=== PATIENT | male | born 1965 | race Hispanic/Latino ===

== ENCOUNTER 2017-06-05 15:49 | Emergency (ER) | payer MEDICAID, SELFPAY ==
[2017-06-05 15:49] VITALS: BP 146/94; PULSE 67; RESP 18; TEMP 36.3; O2SAT 99; BMI 29.9
--- NOTE | 2017-06-05 16:01 | RAD_ITS ---
STUDY: X-RAY CHEST REASON FOR EXAM: Male, 51 years old. Coughing for one week TECHNIQUE: PA and lateral views of the chest. COMPARISON: None. FINDINGS: The lungs are clear and expanded. There is no demonstrated pleural abnormality. Normal size heart. Normal mediastinum and ford. Normal visualized pulmonary arteries. Normal visualized aortic arch and descending thoracic aorta. Normal visualized thoracic spine. Postop changes lateral left clavicle. There is no demonstrated abnormality of the visualized soft tissue structures of the upper abdomen. RAD/Chest PA and Lateral IMPRESSION: No acute cardiopulmonary findings. Negative for infiltrate, consolidation, atelectasis or pleural effusion. Electronically Signed: Peyton Romero MD at 17:05 EDT , Service support ,
--- NOTE | 2017-06-05 16:02 | ED.VISSUMM ---
- ER Visit Summary Date of Service: 06/05/17 Chief Complaint: Bronchitis History of Present Illness: The patient is a 51 M with a one-week history of cough and cold symptoms. Patient states he had cough and congestion for the past 1 week and was seen at [facility]. He was diagnosed with bronchitis. He was given albuterol and Zithromax which caused him to vomit. Antibiotics were stopped. Patient is complaining continued congestion. He states his sputum was initially green but is not clear. He does not feel as if he is wheezing. He has not had a fever. He does state that his roommate has pneumonia and is currently on antibiotics. Physical Examination: Vital signs are unremarkable. Patient sitting in a bedside chair no acute distress. Head neck examination revealed left TM to be clear. Right TM has some clear fluid. He has mild posterior pharyngeal drainage. Uvula is midline with no significant tonsillar enlargement. Neck is supple with bilateral anterior cervical lymphadenopathy. Heart is regular rate and rhythm. Lung sounds are clear. Abdomen is soft nontender. Test Results: Two-view chest x-ray reveals no focal infiltrate. Emergency Department Course and Treatment: Test results were discussed with the patient. My suspicion is that his symptoms are viral in nature. He is encouraged to take Mucinex [id number] and Benadryl to help with the sputum and sinus drainage. Treatment Plan: [] Disposition: Discharge Impression: Bronchitis This note was generated with [employer] dictation software. It may contain incorrect words, spelling, and punctuation that were not noted in review of the chart prior to signing ED Disposition - Plan for ED Patient: Chief Complaint: Cough Referrals: Ty Seals MD [Primary Care Provider] -
--- NOTE | 2017-06-05 17:25 | ED.DEP ---
ED Disposition - Plan for ED Patient: Disposition: Home or Assisted Living Chief Complaint: Cough Instructions: Acute Bronchitis Referrals: Ty Seals MD [Primary Care Provider] - 1 Week
== END 2017-06-05 17:39 | disposition home or self-care (01) ==
PROVIDERS: Emergency Provider Emergency Medicine; Family Provider Family Medicine; PCP Family Medicine
DX: J40 Bronchitis, not specified as acute or chronic (principal); Z87.19 Personal history of other diseases of the digestive system
CPT/HCPCS: 71046; 99282

== ENCOUNTER 2019-02-27 18:23 | Emergency (ER) | payer MEDICAID, SELFPAY ==
[2019-02-27 18:24] VITALS: BP 134/59; PULSE 70; RESP 16; TEMP 35.8; O2SAT 100; BMI 28.3
[2019-02-27 18:50] VITALS: TEMP 36.4
--- NOTE | 2019-02-27 19:02 | ED.DCSUM_ITS ---
History of Present Illness Chief Complaint: Wound Check Informant: Patient Onset: Days Narrative: Patient states that he began to have some swelling infection on the right lower aspect of his arita line on the neck. He went to [facility] and pus was expressed and was felt that it should heal up without much difficulty. He became concerned today so he wanted a second opinion. He also notes that he gets hives for the past several years and has appointment with an retinal angiographer. He states that he shaves several times a day. Past Medical History - Allergies and Home Meds Allergies/Adverse Reactions: Allergies ibuprofen Allergy (Verified 02/27/19 18:24) Angioedema oxycodone Allergy (Verified 02/27/19 18:24) Other aspirin Adverse Reaction (Verified 02/27/19 18:24) Other Primary Care Physician: Ty Seals MD [Primary Care Provider] - As Needed Smoking Status: Never smoker Review of Systems General: Denies: Chills, Fever, Sweats Eyes: Denies: Visual changes - bilaterally, Diplopia ENT: Denies: Rhinorrhea, Sore throat Cardiovascular: Denies: Chest pain, Palpitations Respiratory: Denies: Dyspnea, Cough, Dyspnea on exertion Gastrointestinal: Denies: Abdominal pain, Nausea, Vomiting, Diarrhea, Melena, Hematochezia Genitourinary: Denies: Dysuria, Hematuria, Frequency Musculoskeletal: Denies: Back pain, Extremity Pain Skin: Reports: Abscess. Denies: Rash, Wounds Neurological: Denies: Headache, Weakness, Numbness Physical Exam Vital Signs/Narrative: Vital Signs Temp Pulse Resp BP Pulse Ox 02/27/19 18:50 97.5 F L 02/27/19 18:24 96.5 F L 70 16 134/59 H 100 Inital Vital Signs reviewed: Yes General: Well nourished, Well developed, No Acute Distress Head: Normocephalic, Atraumatic Eyes: Perrl, EOMI ENT: Moist mucous membranes, No rhinorrhea Neck: Supple, - - Right lower neck along the arita line demonstrates a pustule with the pus having been expressed. There is no significant erythema or cellulitic changes. Cardiovascular: Regular rate, Regular rhythm, No murmurs Respiratory: No distress, CTA bilaterally, Chest nontender Abdomen: Soft, Nontender, Nondistended, Normal bowel sounds Back: Nontender, Normal Inspection Extremities: Nontender, No edema Skin: Normal color, No rash Neurological: Alert, Oriented x3, Cranial nerves II-XII grossly intact, Normal Strength, Normal Sensation Psychological: Normal affect, Normal Mood Diagnostic/Tx/Re-eval - Medical Decision Making I will write for the patient have some Bactroban. Otherwise I would recommend less frequent shaving. He may apply some heat to the area. He was advised that these are most likely an ingrown hair but should he develop a large collection of pus he can return for us to I&D it. ED Disposition - Plan for ED Patient: Disposition: Home or Assisted Living Diagnosis: Pustule Instructions: ABSCESS, Antiobiotic Treatment Only Prescriptions: Mupirocin [Bactroban] 1 applic TOPICAL TID #30 g Prescription Printed Referrals: Ty Seals MD [Primary Care Provider] - As Needed
== END 2019-02-27 19:17 | disposition home or self-care (01) ==
LOC: ED 19:15
PROVIDERS: Emergency Provider Emergency Medicine; Family Provider Family Medicine; PCP Family Medicine
DX: L08.9 Local infection of the skin and subcutaneous tissue, unspecified (principal)
CPT/HCPCS: 99282

== ENCOUNTER 2019-04-02 15:11 | Emergency (ER) | payer MEDICAID, SELFPAY ==
[2019-04-02 15:12] VITALS: BP 120/70; PULSE 67; RESP 17; TEMP 36.4; O2SAT 99; BMI 28.8
--- NOTE | 2019-04-02 15:31 | ED.VIS.GEN ---
History of Present Illness Chief Complaint: Eye Problem Detail of Chief Complaint: Left eye irritation Informant: Patient Onset: Today Current Severity: Mild Maximum Severity: Mild Narrative: Patient states he woke this morning with slight irritation and erythema to the medial left eye. He denies any known injury. Reports minimally blurred vision at times. He wears reading glasses only. Denies significant URI symptoms. Past Medical History - Allergies and Home Meds Allergies/Adverse Reactions: Allergies ibuprofen Allergy (Verified 04/02/19 15:11) Angioedema oxycodone Allergy (Verified 04/02/19 15:11) Other aspirin Adverse Reaction (Verified 04/02/19 15:11) Other Primary Care Physician: Ty Seals MD [Primary Care Provider] - Past Medical History: - - Eye injury from prior accident when he was in his 20s Smoking Status: Never smoker Review of Systems General: Denies: Chills, Fever Eyes: Reports: Blurred vision - left ENT: Denies: Bilateral ear pain, Sore throat Cardiovascular: Denies: Chest pain Respiratory: Denies: Dyspnea, Cough Gastrointestinal: Denies: Abdominal pain, Nausea, Vomiting, Diarrhea Genitourinary: Denies: Dysuria Musculoskeletal: Denies: Extremity Pain Skin: Denies: Rash Neurological: Denies: Headache Allergy: Denies: Uticaria Physical Exam Vital Signs/Narrative: Vital Signs Temp Pulse Resp BP Pulse Ox 04/02/19 15:12 97.6 F L 67 17 120/70 99 Inital Vital Signs reviewed: Yes General: Well nourished, Well developed Head: Normocephalic, Atraumatic Eyes: Perrl, EOMI, - - Patient has a small subconjunctival hemorrhage on the medial left eye. No eyelid edema or tenderness. ENT: Moist mucous membranes, - - Normal posterior pharynx Neck: Supple Cardiovascular: Regular rate, Regular rhythm Respiratory: No distress, CTA bilaterally Abdomen: Soft, Nontender Skin: Normal color Neurological: Alert, Oriented x3 Psychological: Normal affect Diagnostic/Tx/Re-eval - Medical Decision Making Patient will continue to use Visine eyedrops. I advised him he can use an ice pack if he needs it for irritation. There is no indication of infection or need for antibiotics at this time. He will be referred to Dr. Drummond for follow-up as needed. ED Disposition - Plan for ED Patient: Disposition: Home or Assisted Living Diagnosis: Subconjunctival hemorrhage Instructions: Subconjunctival Hemorrhage Referrals: Yusuf Drummond MD [STAFF PHYSICIAN] - As Needed
== END 2019-04-02 15:41 | disposition home or self-care (01) ==
LOC: ED 15:38
PROVIDERS: Emergency Provider Emergency Medicine; PCP Family Medicine
DX: H11.32 Conjunctival hemorrhage, left eye (principal)
CPT/HCPCS: 99282

== ENCOUNTER → 2019-09-08 10:07 | Outpatient (CLI) | payer MEDICAID, SELFPAY ==
--- NOTE | 2019-09-08 10:15 | RAD_ITS ---
STUDY: AIR-CONTRAST BARIUM ESOPHAGRAM REASON FOR EXAM: Male, 53 years old. Pt c/o acid reflux x 2 years RADIATION DOSAGE (If Supplied By Facility): CTDIvol = ( ) mGy, DLP = ( ) mGycm. Individualized dose optimization techniques were used for this CT.? FLUOROSCOPY TIME (if supplied): ( 0:47 ) minutes/seconds TECHNIQUE: Air-contrast COMPARISON: None. FINDINGS: Swallowing was initiated normally. No nasopharyngeal reflux or aspiration. No Zenker''s diverticulum on the lateral view. Normal peristaltic activity noted within the esophagus. No mucosal irregularity stricture or mass noted. No evidence of hiatal hernia. There was however evidence of GE reflux particularly with increased intrathoracic pressure. A 13 mm barium pill passed through the esophagus without difficulty RAD/Esophagus Dual Contrast IMPRESSION: GE reflux Electronically Signed: Yimi Larios MD at 12:08 EDT , Service support ,
== END ==
PROVIDERS: PCP Family Medicine; Referring Provider Otolaryngology; Visit Provider Otolaryngology
DX: R13.10 Dysphagia, unspecified (principal)
CPT/HCPCS: 74221

== ENCOUNTER 2020-09-30 18:42 | Emergency (ER) | payer MEDICAID, SELFPAY ==
[2020-09-30 18:43] VITALS: BP 128/90; PULSE 63; RESP 18; TEMP 36.3; O2SAT 97; BMI 29.2
--- NOTE | 2020-09-30 19:17 | RAD_ITS ---
STUDY: X-RAY - CERVICAL SPINE REASON FOR EXAM: Male, 54 years old. Low neck pain post lifting TECHNIQUE: view(s) of the cervical spine were obtained. COMPARISON: None FINDINGS: T1 is not seen. C7-T1 alignment is presumed normal. Craniocervical junction and cervical spine are intact and aligned with mild age-related change. Particular soft tissues are normal. Odontoid is intact and located within the atlas which is centered on the axis. RAD/Cerv Spine 2 or 3 Views IMPRESSION: Mild degenerative change. Electronically Signed: Stephania Berman MD at 20:08 EDT Tel , Service support ,
--- NOTE | 2020-09-30 19:18 | EDS_ITS ---
HPI History of Present Illness Chief Complaint: Other, Pain/Inj Informant: patient Narrative Narrative: Patient is a 54-year-old male with a past medical history of anxiety who presents to the emergency department for neck pain. States that this has been present over the past 2 to 3 weeks. He believes that was injured while lifting weights. He went to the chiropractor which did not give him significant relief. He has been doing heating pads over the area which has also not been helping. He has not taken any medications for it. Feels like his head is weighing down. He feels a lump on the back of his neck. He denies any low back. No headache or vision change. He does have a history of low back surgery. He denies any chest pain, shortness of breath. No abdominal pain or nausea/vomiting. PFSH PFSH Home Medications mupirocin 1 applic TOPICAL TID #30 g 02/27/19 [Rx Last Taken Unknown] Allergy/AdvReac Type Severity Reaction Status Date / Time ibuprofen Allergy Angioedema Verified 09/30/20 18:43 oxycodone Allergy Other Verified 09/30/20 18:43 aspirin AdvReac Other Verified 09/30/20 18:43 Social History Smoking Status: Never smoker ROS ROS ED Constitutional Constitutional ED: Denies chills or fever(s) Eyes Eyes: Denies change in vision ENT ENT ED: Denies epistaxis or rhinorrhea Cardiovascular Cardiovascular: Denies chest pain or palpitations Respiratory/Chest Respiratory/Chest: Denies cough, dyspnea or dyspnea on exertion Gastrointestinal Gastrointestinal: Denies abdominal pain, diarrhea, nausea or vomiting Musculoskeletal Musculoskeletal: Reports neck pain; Denies back pain Integumentary Denies rash Neurologic Neurologic: Denies dizziness, headache(s) or weakness EXAM Physical Exam Const Vital Signs: 09/30/20 18:43 Temperature 97.4 F L Temperature Source Temporal Pulse Rate 63 Respiratory Rate 18 Blood Pressure 128/90 H Blood Pressure Mean 102 Pulse Ox 97 Oxygen Delivery Method Room Air Positive well nourished and well developed General Appearance ED: well developed and NAD HEENT Reports normocephalic, head/scalp atraumatic and moist mucous membranes Eyes PERRL and EOMs intact bilaterally Neck supple Neck Narrative: There is tight musculature over the C7 area with bulge at this area. This could just be pronounced cervical kyphosis. General: Negative for tenderness Resp normal respiratory effort and clear to auscultation bilaterally Auscultation: Negative for rales, rhonchi or wheezes Cardio regular rate, regular rhythm and no murmurs GI normal to inspection, nondistended, normoactive bowel sounds and non-tender Palpation: soft; Negative for guarding or rebound tenderness present Extremity normal to inspection General Extremety ED: Negative for edema or tenderness General Extremity: Negative for edema Neuro Sensorium / Orientation: alert Motor Exam: strength 5/5 throughout Psych mental status grossly normal Skin no rashes or lesions noted MDM MDM MDM Narrative Medical decision making narrative: Patient presents to the emergency department for neck discomfort. He felt a bulge in the back of his neck. This was after lifting weights. Has been going on for multiple weeks. He is currently denying significant pain. He feels a second heavy sensation in the back with the bump. X-ray of the cervical spine did not reveal any acute abnormality. There are some degenerative changes. At this time will recommend symptomatic treatment. He is to follow-up with his PCP. Return precautions reviewed with him. He understands and is agreeable this plan. All questions are answered. Radiography Diagnostic Testing: Radiology Impression Cervical Spine X-Ray 09/30/20 19:17 IMPRESSION: Mild degenerative change. Electronically Signed: Stephania Berman MD at 20:08 EDT Tel , Service support , Discharge Plan Triage Chief Complaint: Other, Pain/Inj ED Provider: Paul Becker Dx/Rx/DC Orders Clinical Impression: Neck arthritis Instructions: ED Neck Pain Prescriptions: No Action mupirocin 1 APPLIC ointment 1 applic topical TID Qty: 30 RF: 0 Primary Care Provider: Michael Andrade NP Referrals: Michael Andrade NP, [employer] [Primary Care Provider] - 1 Week if not improving Disposition Disposition: Home, Self Care Discharge Date/Time: 09/30/20 20:48
== END 2020-09-30 20:48 | disposition home or self-care (01) ==
PROVIDERS: Emergency Provider Emergency Medicine; PCP Nurse Practitioner Primary Care
DX: M47.812 Spondylosis without myelopathy or radiculopathy, cervical region (principal); F41.9 Anxiety disorder, unspecified; X50.0XXA Overexertion from strenuous movement or load, initial encounter; Y93.B3 Activity, free weights; Y92.9 Unspecified place or not applicable
CPT/HCPCS: 72040; 99283

== ENCOUNTER 2020-10-31 16:07 | Emergency (ER) | payer MEDICAID, SELFPAY ==
[2020-10-31 16:08] VITALS: BP 126/76; PULSE 74; RESP 16; TEMP 36.1; O2SAT 96; BMI 65.0
--- NOTE | 2020-10-31 16:52 | EDS_ITS ---
HPI History of Present Illness Chief Complaint: Lower Extremity Injury Narrative Narrative: 54-year-old male presenting with bilateral heel and calf pain. Patient states she was running when he noticed this started to hurt. He states it is initially on the right foot a long time ago and now it is on the left. He states he wears custom orthotics from his orthopedic surgeon and has not seen him in a while. He thinks he is may be old. Patient is ambulatory. He is not requiring assistance. PFSH PFS Home Medications Unobtainable 10/31/20 [History Last Taken Unknown] Allergy/AdvReac Type Severity Reaction Status Date / Time ibuprofen Allergy Angioedema Verified 10/31/20 16:07 oxycodone Allergy Other Verified 10/31/20 16:07 aspirin AdvReac Other Verified 10/31/20 16:07 Surgical History Previous back surgery Social History Smoking Status: Never smoker ROS ROS ED Constitutional Constitutional ED: Denies chills or fever(s) Eyes Eyes: Denies blurry vision or diplopia ENT ENT ED: Denies rhinorrhea or sore throat Cardiovascular Cardiovascular: Denies chest pain or palpitations Respiratory/Chest Respiratory/Chest: Denies cough or dyspnea Gastrointestinal Gastrointestinal: Denies abdominal pain or nausea Musculoskeletal Musculoskeletal: Reports other Details: Bilateral heel and distal calf pain ; Denies back pain or neck pain Integumentary Denies Abrasions or rash Neurologic Neurologic: Denies headache(s) or paresthesias EXAM Physical Exam Const Vital Signs: 10/31/20 16:08 Temperature 96.9 F L Temperature Source Temporal Pulse Rate 74 Respiratory Rate 16 Blood Pressure 126/76 H Blood Pressure Mean 92 Pulse Ox 96 Oxygen Delivery Method Room Air Positive well nourished General Appearance ED: NAD HEENT normocephalic and atraumatic Extremity Extremity Narrative: Tenderness to palpation distal calf and Achilles region bilaterally. No bony tenderness or deformity. Patient has pain with plantarflexion and dorsiflexion. Patient is able to ambulate. Neuro oriented x3 Sensorium / Orientation: alert Psych mental status grossly normal Skin no wounds Rashes: no rashes MDM MDM MDM Narrative Medical decision making narrative: Patient's symptoms most consistent with Achilles tendinitis. Patient counseled on using Tylenol, compression to his allergy to ibuprofen. Patient will follow up with his electrician underground outpatient. I do not believe the patient needs any imaging. Impression: 1. Achilles tendinitis Discharge Plan Triage Chief Complaint: Lower Extremity Injury ED Provider: Chuy Lancaster Dx/Rx/DC Orders Instructions: Understanding Achilles Tendonitis Prescriptions: No Action Unobtainable RF: 0 Primary Care Provider: Michael Andrade NP Referrals: Michael Andrade CURRICULUM DEVELOPER, [facility]ELOPER[facility] [Primary Care Provider] - Disposition Disposition: Home, Self Care
== END 2020-10-31 17:24 | disposition home or self-care (01) ==
LOC: ED 16:59
PROVIDERS: Emergency Provider Student in an Organized Health Care Education/Training Program; PCP Nurse Practitioner Primary Care
DX: M76.62 Achilles tendinitis, left leg (principal); M76.61 Achilles tendinitis, right leg
CPT/HCPCS: 99282

== ENCOUNTER 2021-01-31 09:47 | Inpatient (IN) | payer MEDICAID, SELFPAY ==
[2021-01-31] VITALS (9 sets, daily range): BP systolic 114–159; BP diastolic 73–82; PULSE 71–87; RESP 16–19; TEMP 36.1–37.2; O2SAT 98–100; BMI 29.2
--- NOTE | 2021-01-31 10:27 | EKG12_ITS ---
Test Reason : ANXIETY Blood Pressure : / mmHG Vent. Rate : 063 BPM Atrial Rate : 063 BPM P-R Int : 182 ms QRS Dur : 078 ms QT Int : 430 ms P-R-T Axes : 058 016 023 degrees QTc Int : 440 ms Normal sinus rhythm Normal ECG Confirmed by FLAKITA WATKINS, XENIA ([id number]), manager editorial MARICEL FERRER ([id number]) on 02/03/2021 10:05:09 AM Referred By: RU Confirmed By:XENIA BOGGS MD
--- NOTE | 2021-01-31 10:32 | EX.ED.VIS.HA ---
HPI History of Present Illness Chief Complaint: Headache Narrative Narrative: 55-year-old male with history of anxiety presenting with headache, palpitations, difficulty breathing. He states he thinks he is having an anxiety attack. Patient takes passion flower for this. He does not take any other medications. He was at his counselor's office and they asked him if he needed to go to the ER and he said yes. He has a mild occipital headache which he has not taken any medication for. No visual complaints, unsteady gait, paresthesias, inability to move his extremities. No photophobia or phonophobia. Patient also states that he is having some palpitations and he feels like he is short of breath. Patient states that he also may have body aches but he thinks this may be due to running yesterday and sometimes he gets body aches after running. He is not had a fever, chills, cough. No cardiac history. No lung issues. Patient admits to nausea. [facility] Medical History (Updated 01/31/21 @ 12:[address] Jerome Louis DO) Anxiety Neck arthritis Home Medications famotidine 40 mg PO DAILY 01/31/21 [History Last Taken Unknown] fexofenadine 180 mg PO DAILY 01/31/21 [History Last Taken Unknown] Allergy/AdvReac Type Severity Reaction Status Date / Time ibuprofen Allergy Angioedema Verified 01/31/21 09:50 oxycodone Allergy Other Verified 01/31/21 09:50 aspirin AdvReac Other Verified 01/31/21 09:50 Family History (Updated 01/31/21 @ 12:[address] Jerome Louis DO) Daughter Congenital heart anomaly Surgical History Previous back surgery Social History (Updated 01/31/21 @ 12:[address] Jerome Louis DO) Smoking Status: Never smoker alcohol intake: never substance use type: does not use ROS ROS ED Constitutional Constitutional ED: Denies chills or fever(s) Eyes Eyes: Denies blurry vision or diplopia ENT ENT ED: Denies rhinorrhea or sore throat Cardiovascular Cardiovascular: Reports palpitations; Denies chest pain Respiratory/Chest Respiratory/Chest: Reports dyspnea; Denies cough or dyspnea on exertion Gastrointestinal Gastrointestinal: Reports nausea; Denies abdominal pain, constipation, diarrhea or vomiting Genitourinary Genitourinary ED: Denies dysuria or hematuria Musculoskeletal Musculoskeletal: Reports myalgias; Denies arthralgias or neck pain Integumentary Denies Abrasions or rash Neurologic Neurologic: Denies headache(s) Psychiatric Psychiatric: Reports anxiety; Denies depression, suicidal ideation or suicidal thoughts EXAM Physical Exam Const Vital Signs: 01/31/21 09:47 Temperature 97.0 F L Temperature Source Temporal Pulse Rate 84 Respiratory Rate 16 Blood Pressure 159/76 H Blood Pressure Mean 103 Pulse Ox 100 Oxygen Delivery Method Room Air Positive well nourished General Appearance ED: NAD; Negative for pallor HEENT Reports normocephalic and moist mucous membranes atraumatic Eyes PERRL and EOMs intact bilaterally Resp normal respiratory effort and clear to auscultation bilaterally Auscultation: Negative for rales, rhonchi or wheezes Cardio regular rate and regular rhythm GI non-tender and non-distended Palpation: soft Back/Spine no CVA tenderness Extremity Negative for normal to inspection General Extremety ED: Negative for edema or tenderness General Extremity: Negative for edema Neuro oriented x3, CN's II-XII intact bilaterally and no sensory deficits noted Sensorium / Orientation: awake and alert Speech: speech normal Motor Exam: strength 5/5 throughout Psych mental status grossly normal Skin General Skin Exam: Negative for jaundice or pallor Lesions: no lesions Rashes: no rashes MDM MDM MDM Narrative Medical decision making narrative: 55-year-old male presenting with vague symptoms of potentially of palpitation. He denies chest pressure or even pain. He states he has no pain he does have a slight occipital headache and some body aches. He attributed this to working out heavily last night but he feels very anxious as well. He does have a history of anxiety. Because of this I tested him for COVID-19 and his test was negative. I obtain blood work and his CBC is unremarkable. His CMP shows slight hypokalemia 3.4, renal function is normal. LFTs are normal with exception of an AST of 61. His high-sensitivity troponin was 314. His EKG on my interpretation shows a sinus rhythm with ventricular rate of 62 bpm without sign of ischemic change. Chest x-ray my interpretation shows no acute cardiopulmonary process. Patient is PERC negative. I have low suspicion for PE. Patient was discussed with the hospitalist for admission who requested that we do a CPK which is slightly elevated at 314 but I do not believe the significantly elevated enough to cause an elevated troponin and his renal function is normal. Dr. Jensen did want to hold heparin for now and follow his cardiac enzymes. Patient admitted in stable condition. Impression: 1. NSTEMI 2. Headache 3. Palpitations Lab Data Attestation: I reviewed the patient's lab results. Labs: Laboratory Results - last 24 hr 01/31/21 01/31/21 01/31/21 10:40 10:40 10:40 WBC 5.4 RBC 4.49 L Hgb 14.4 Hct 42.6 MCV 94.9 H MCH 32.1 H MCHC 33.8 RDW Std Deviation 41.9 RDW Coeff of Cristine 12.0 Plt Count 177 MPV 11.0 Immature Gran % (Auto) 0.200 Neut % (Auto) 39.2 L Lymph % (Auto) 47.6 H [place] % (Auto) 7.7 Eos % (Auto) 4.6 Baso % (Auto) 0.7 Absolute Neuts (auto) 2.1 Absolute Lymphs (auto) 2.59 Nucleated RBC % 0 Sodium 140 Potassium 3.4 L Chloride 107 Carbon Dioxide 28.0 Anion Gap 5 BUN 15 Creatinine 1.02 Estim Creat Clear Calc 70.13 Est GFR (MDRD) Af Amer 98 Est GFR (MDRD) Non-Af 81 BUN/Creatinine Ratio 14.7 Glucose 110 H Calcium 9.0 Total Bilirubin 0.50 AST 61 H ALT 58 Alkaline Phosphatase 76 Total Creatine Kinase 314 H Troponin I High Sens 158 H* Total Protein 7.8 Albumin 3.8 Globulin 4.0 Albumin/Globulin Ratio 1.0 Radiography Diagnostic Testing: Clinical Impression(s) from Imaging Studies Chest X-Ray 01/31/21 10:40 IMPRESSION: Normal x-ray examination of the chest. Electronically Signed: Akash Bojorquez MD at 11:12 EST , Service support , Discharge Plan Disposition Disposition: Acute Care Hospital [facility] Discharge Date/Time: 01/31/21 12:54
--- NOTE | 2021-01-31 10:40 | RAD_ITS ---
STUDY: X-RAY CHEST REASON FOR EXAM: Male, 55 years old. Cough TECHNIQUE: Single AP portable view of the chest. COMPARISON: Comparison is made with prior study dated 06/05/2017. FINDINGS: There is elevation of the right hemidiaphragm. The lungs are clear. There is no demonstrated pleural abnormality. Normal size heart. Normal mediastinum and ford. Normal visualized pulmonary arteries. Normal visualized aortic arch and descending thoracic aorta. There are degenerative changes of the visualized thoracic spine. Normal visualized ribs, clavicles, and shoulders. There is no demonstrated abnormality of the visualized soft tissue structures of the upper abdomen. RAD/Chest 1 View (Portable) IMPRESSION: Normal x-ray examination of the chest. Electronically Signed: Akash Bojorquez MD at 11:12 EST , Service support ,
[2021-01-31 10:50] LABS: Absolute Lymphocyte Count 2.59 X10^3/uL (0.83-4.51); Absolute Neutrophil Count 2.1 X10^3/uL (2.0-7.7); Basophil# 0.04 X10^3/uL; Basophil% 0.7 % (0-1); Eosinophil# 0.25 X10^3/uL; Eosinophils% 4.6 % (0-5); Hematocrit 42.6 % (40-54); Hemoglobin 14.4 g/dL (13.0-16.5); Lymphocyte # 2.59 X10^3/ul (0.83-4.51); Lymphocyte % 47.6 % (19-41); Mean Corp Hgb Conc 33.8 g/dL (32-36); Mean Corpuscular Hgb 32.1 pg (27.0-32.0); Mean Corpuscular Volume 94.9 fL (80-94); Monocyte# 0.42 X10^3/uL; Monocyte% 7.7 % (0-10); NRBC Flagged by Analyzer 0 % (0-5); Neutrophil # 2.13 X10^3/uL (2.7-7.7); Neutrophil % 39.2 % (47-70); Platelet Count 177 K/mm3 (150-450); RBC Distribution Width SD 41.9 fl (35.1-43.9); Red Blood Count 4.49 M/mm3 (4.6-6.2); White Blood Count 5.4 K/mm3 (4.4-11.0)
[2021-01-31 11:11] LABS: AST(SGOT) 61 U/L (15-37); Alanine Aminotransfer ALT/SGPT 58 U/L (16-61); Albumin, Serum 3.8 g/dL (3.2-5.0); Alkaline Phosphatase 76 U/L (45-117); Anion Gap 5 (5-15); BUN 15 mg/dL (7-18); BUN/Creat Ratio 14.7 RATIO (10-20); Chloride 107 mmol/L (98-107); Creatinine, Serum 1.02 mg/dL (0.70-1.30); EST Glomerular Filtration Rate 81 mL/min (>60); Est Glom Filt Rate - Afr Amer 98 mL/min (>60); Estimated Creatinine Clearance 70.13 ml/min; Glucose 110 mg/dL (74-106); Potassium 3.4 mmol/L (3.5-5.1); Protein, Total 7.8 g/dL (6.4-8.2); Sodium Level 140 mmol/L (136-145); Troponin-I HS 158 pg/mL (3.0-78.0)
[2021-01-31] MEDS: Clopidogrel Bisulfate 75 MG Tablet PO (12:16)
--- NOTE | 2021-01-31 12:17 | PCM.HP.STD ---
HPI - General General Date of Admission: 01/31/21 HPI Narrative ANIRUDH CAUSEY, is a 55 M who presents headache, palpitations or shortness of breath. Patient feels this is a with his anxiety attack and saw this counselor who directed him to the emergency room. Patient states that yesterday he worked out pretty heavy by running 2 to 3 miles and then did a weight workout. Barnard fine then did not have any chest pain or shortness of breath. Though he did note yesterday was taken some garbage out for friend going up some stairs he felt a little bit off and then he would normally. But he states he also just feels unwell after many workouts. He presented emergency room and his work-up was unremarkable except for he had a troponin of 158. Cardiology was contacted and will see the patient in consultation. [facility] Medical History (Updated 01/31/21 @ 12:[address] Jerome Louis DO) Anxiety Neck arthritis Home Medications famotidine 40 mg PO DAILY 01/31/21 [History Last Taken Unknown] fexofenadine 180 mg PO DAILY 01/31/21 [History Last Taken Unknown] Allergy/AdvReac Type Severity Reaction Status Date / Time ibuprofen Allergy Angioedema Verified 01/31/21 09:50 oxycodone Allergy Other Verified 01/31/21 09:50 aspirin AdvReac Other Verified 01/31/21 09:50 Family History (Updated 01/31/21 @ 12:[address] Jerome Louis DO) Daughter Congenital heart anomaly adopted Surgical History Previous back surgery Social History (Updated 01/31/21 @ 12:[address] Jerome Loius DO) Smoking Status: Never smoker alcohol intake: never substance use type: does not use ROS ROS Narrative Patient states that he had a abdominal pain and then a very large bowel movement today before his symptoms began. All review of systems were negative except as mentioned above in the history of present illness and the other review of systems. Vital Signs Vital Signs Vital Signs: 01/31/21 09:47 Temperature 36.1 C L Temperature Source Temporal Pulse Rate 84 Respiratory Rate 16 Blood Pressure 159/76 H Blood Pressure Mean 103 Pulse Ox 100 Oxygen Delivery Method Room Air Weight Weight: 77.111 kg Body Mass Index (BMI) 29.2 Physical Exam Const alert Constitutional Narrative: Anxious. Afebrile. No conversational dyspnea no respiratory distress. General Appearance: cooperative HEENT normocephalic Neck no lymphadenopathy Resp normal respiratory effort, no retractions, no use of accessory muscles and clear to auscultation bilaterally Cardio regular rate, regular rhythm, S1 normal heart sound, S2 normal heart sound and no murmurs GI normal to inspection, nondistended, normoactive bowel sounds, soft to palpation, non-tender and non-distended Extremity normal to inspection Skin no rashes or lesions noted Neuro oriented x3 Sensorium / Orientation: awake, alert and oriented to person Psych affect normal Results Lab / Micro Data Attestation: I reviewed the patient's lab results. Result Diagrams: 01/31/21 10:40 01/31/21 10:40 Labs: Laboratory Results - last 24 hr 01/31/21 10:40: WBC 5.4, RBC 4.49 L, Hgb 14.4, Hct 42.6, MCV 94.9 H, MCH 32.1 H, MCHC 33.8, RDW Std Deviation 41.9, RDW Coeff of Cristine 12.0, Plt Count 177, MPV 11.0, Immature Gran % (Auto) 0.200, Neut % (Auto) 39.2 L, Lymph % (Auto) 47.6 H, [place] % (Auto) 7.7, Eos % (Auto) 4.6, Baso % (Auto) 0.7, Absolute Neuts (auto) 2.1, Absolute Lymphs (auto) 2.59, Nucleated RBC % 0 01/31/21 10:40: Sodium 140, Potassium 3.4 L, Chloride 107, Carbon Dioxide 28.0, Anion Gap 5, BUN 15, Creatinine 1.02, Estim Creat Clear Calc 70.13, Est GFR (MDRD) Af Amer 98, Est GFR (MDRD) Non-Af 81, BUN/Creatinine Ratio 14.7, Glucose 110 H, Calcium 9.0, Total Bilirubin 0.50, AST 61 H, ALT 58, Alkaline Phosphatase 76, Troponin I High Sens 158 H*, Total Protein 7.8, Albumin 3.8, Globulin 4.0, Albumin/Globulin Ratio 1.0 Micro: Microbiology 01/31/21 10:40 Nasal Secretion SARS-CoV-2 Antigen (Rapid) - Final EKG Initial EKG: Attestation: I personally reviewed and interpreted this EKG as follows: Prior EKG tracings: available for review EKG Rhythm Intrepretation: Sinus Rhythm Radiology Impression Chest X-Ray 01/31/21 10:40 IMPRESSION: Normal x-ray examination of the chest. Electronically Signed: Akash Bojorquez MD at 11:12 EST , Service support , Assessment & Plan Assessment/Plan (1) NSTEMI, initial episode of care: (2) COVID-19 vaccination declined: PLAN: 1. Non-ST elevation myocardial infarction Troponin was 158. Since patient does workout heavily per his description, request that the emergency room physician had a CPK see if he has rhabdomyolysis. Cardiology was contacted through the emergency room and I did not recommend anticoagulation at this point time. They would see the patient in consultation. Patient developed angioedema with NSAIDs so hold off on aspirin and patient has received clopidogrel in the emergency room and will continue on floor until further cardiac work-up has been completed. Check a 2D echocardiogram 2. Anxiety Patient concerned that his anxiety could be causing all the symptoms. Told him that would be a diagnosis of exclusion with his elevated cardiac enzymes. 3. Covid vaccine hesitancy Strongly encouraged he get COVID-19 vaccine. It seemed to make him more anxious to be bringing this up. Still that he would need to talk to his doctor (nevermind that I am a doctor) and his counselor. Seem more like excuse not to get the vaccine. Explained to him that since he has not had COVID-19 that if he were contracted that he would be at higher risk for serious complications being unvaccinated. I told him tobin this just so that he can think about this. 4. VTE prophylaxis: Low molecular weight heparin. Charges/Coding Visit Charges Inpatient E&M: 70303 Init Hosp L3
--- NOTE | 2021-01-31 12:53 | EKG12_ITS ---
Test Reason : ADM CP Blood Pressure : / mmHG Vent. Rate : 072 BPM Atrial Rate : 072 BPM P-R Int : 176 ms QRS Dur : 078 ms QT Int : 418 ms P-R-T Axes : 054 038 028 degrees QTc Int : 457 ms Normal sinus rhythm Normal ECG When compared with ECG of 31-JAN-2021 11:08, MANUAL COMPARISON REQUIRED, DATA IS UNCONFIRMED Confirmed by HEIDI WATKINS, JAMES ([id number]), medical editor MARICEL FERRER ([id number]) on 02/04/2021 8:45:10 AM Referred By: ALEXIS Confirmed By:JAMES GORDON MD
--- NOTE | 2021-01-31 12:53 | ECHOD_ITS ---
Reason For Study: Elevated Troponins Procedure This was a 2D Doppler, Color Flow transthoracic echocardiogram. The exam was of adequate technical quality. Exam performed portable in patient room. Left Ventricle Normal LV size. Left ventricular systolic function is normal. The estimated ejection fraction is 70 %. No evidence for diastolic dysfunction. No regional wall motion abnormalities noted. Right Ventricle Normal RV size. Normal systolic function. Atria Normal left atrium. Normal right atrium. No doppler evidence for ASD. Mitral Valve There is no mitral annular calcification. Normal mitral valve. Trivial mitral valve insufficiency. Tricuspid Valve Normal tricuspid valve. Trivial tricuspid valve insufficiency. Unable to estimate RV systolic pressure due to insufficient tricuspid regurgitant envelope. Aortic Valve Trisinus/trileaflet aortic valve. Normal aortic valve. Pulmonic Valve The pulmonic valve is not well visualized. Great Vessels Normal sized aortic root. Pericardium/Pleural No pericardial effusion. MMode/2D Measurements & Calculations LVIDd: 4.1 cm IVSd: 1.1 cm Ao root diam: 3.0 cm LVIDs: 2.3 cm LVPWd: 1.1 cm RVDd: 3.3 cm FS: 43.1 % LAV(MOD-bp): 52.1 ml LVAd ap4: 24.5 cm2 SV(MOD-sp4): 44.8 ml LAV(MOD-bp) Indexed: 28.5 ml/m2 LVLd ap4: 7.6 cm LAV(MOD-sp2): 64.2 ml EDV(MOD-sp4): 67.0 ml LAV(MOD-sp4): 36.4 ml EDV(sp4-el): 66.8 ml LVAs ap4: 12.6 cm2 LVLs ap4: 6.5 cm ESV(MOD-sp4): 22.2 ml ESV(sp4-el): 20.8 ml EF(MOD-sp4): 66.9 % EF(sp4-el): 68.9 % SV(sp4-el): 46.0 ml LA A4 area: 16.3 cm2 LA dimension(2D): 4.0 cm RA A4 area: 15.2 cm2 Doppler Measurements & Calculations MV E max toby: 76.2 cm/sec Lat Peak E' Toby: 11.7 cm/sec Med Peak E' Toby: 7.0 cm/sec MV A max toby: 69.1 cm/sec E/E' lat: 6.5 E/E' med: 10.8 MV E/A: 1.1 Ao V2 max: 151.4 cm/sec LV V1 max: 128.0 cm/sec PA V2 max: 124.6 cm/sec Ao max P.2 mmHg LV V1 max P.5 mmHg Ao V2 mean: 103.3 cm/sec Ao mean P.8 mmHg Ao V2 VTI: 29.4 cm ECHO/Echo Complete Interpretation Summary Left ventricular systolic function is normal. The estimated ejection fraction is 70 %. Trivial mitral valve insufficiency. Trivial tricuspid valve insufficiency. Unable to estimate RV systolic pressure due to insufficient tricuspid regurgita nt envelope. No evidence for diastolic dysfunction. Ordering Physician: Jerome Louis Referring Physician: Michael Andrade Performed By: Livia Siu, JANEEN, RVT
[2021-01-31 12:56] LABS: CPK Total, Creatine Kinase 314 U/L (39-308)
[2021-01-31] MEDS: Potassium Chloride Oral Tablet 20 MEQ 40 MEQ PO (13:19)
[2021-01-31 13:56] LABS: Troponin-I HS 154 pg/mL (3.0-78.0)
--- NOTE | 2021-01-31 14:17 | CON.PCM.CA_ITS ---
Assessment & Plan Assessment/Plan (1) Abnormal cardiac enzyme level: PLAN: The patient has abnormal cardiac enzymes both CPK and troponin I levels. The etiology is unclear at this time. It is not clear the patient has had an acute coronary syndrome event as he has had no classic cardiovascular symptoms and no obvious ECG changes. He has had no evidence of a GUEST RELATIONS REPRESENTATIVE event, thromboembolic event, renal failure, or infection/sepsis type event to contribute to his enzyme change. He does have a history of being extremely physically active. His CPK level was elevated. There is a question as to whether his troponin I levels, which on repeat was without significant change/slightly lower may be related to his physical activities that he describes. At the present time he appears to be without any acute symptoms/distress. He is being monitored. He has been treated with antiplatelet therapy with cubical/Plavix. He has been asked to have evaluation with an echocardiogram to assess his left ventricular wall motion and systolic function. Depending upon his clinical course he may need further noninvasive and/or invasive evaluation to assist with his care. In the interim an attempt will be made to retrieve his previous cardiovascular records from [facility] in [place], [place] especially his diagnostic cardiac catheterization which he states was unremarkable. (2) HTN (hypertension): PLAN: His blood pressures have been intermittently elevated. It is unclear whether this is related to his anxiety versus an undiagnosed hypertensive state. His blood pressures can be followed and he can be treated as deemed appropriate. (3) Anxiety: PLAN: He does appear to be in general anxious. He states this is similar to his usual state with respect to how he feels and how he acts. He does not believe at this time there is any significant change. He will need to continue evaluation care per internal medicine as well as future outpatient evaluation care per his counselor, etc. Addt'l Comments The patient's case has been discussed and reviewed with the patient, his female significant other who is with him, and previously with the [facility] emergency department staff. This note was generated using a voice recognition system and there may be incorrect words, spelling or punctuation that were not noted when reviewing the office note prior to saving. HPI Consult Data Date of Consult: 01/31/21 HPI Narrative HPI Narrative: ANIRUDH CAUSEY, is a 55 year old male who presents for evaluation of abnormal cardiac enzymes. The patient states he has an underlying anxiety disorder and has panic attacks. He states in order to help relieve his anxiety and panic attacks he works out with respect to running and weightlifting. He notes that with his anxiety and his panic attacks he develops a variety of sy mptoms. He states that he can feel chest discomforts, shortness of breath, become dizzy or lightheaded, tired and fatigued, and does not sleep well. He notes some days are better than others. He states he can start thinking about a variety of issues and then wonder if he imagines the symptoms he is having versus actually having the symptoms he has. He states he was evaluated for similar type symptoms and events in the past [facility] in [place], [place]. He states he underwent a diagnostic cardiac catheterization. He was told that his heart was normal and his symptoms and findings were related to his anxiety disorder. He notes since that time, which he believes may have occurred roughly 5 years ago, he has undergone subsequent follow-up which included an exercise tolerance test which he was told was unremarkable. He notes that yesterday evening he ran 2 miles. He then was working out in the gym. He states he believes he overdoes it when he is trying to relieve his anxiety. He states this morning he felt shaky . As he question whether or not any of his recurrent symptoms were related to his anxiety versus some other condition he presented to his counselor for further evaluation. His counselor recommended emergency department evaluation. In the emergency department he had an abnormal troponin I level. His ECG demonstrated sinus rhythm with no obvious ECG changes. A chest x-ray was performed which was unremarkable per radiology. He did have additional laboratory studies which demonstrated a CPK level which was also elevated. Thus there was a question as to whether or not his troponin I level was elevated secondary to his CPK level which was thought to be elevated secondary to his physical activities versus another etiology be a cardiac or noncardiac. He was brought into the PCU for further evaluation and care. He has had a repeat troponin I level which is demonstrated a change from his initial troponin level of 158 to his second troponin I level of 154. He has been resting comfortably in his room without any acute complaints. In the interim based upon concerns of a nonsteroidal anti-inflammatory drug allergy/aspirin allergy he was treated with additional medical therapy with clopidogrel/Plavix. He has not required additional medication for symptom relief, etc. [facility] Medical History (Updated 01/31/21 @ 14:[address] Khris Jensen MD) Abnormal cardiac enzyme level Anxiety Anxiety HTN (hypertension) Neck arthritis Home Medications famotidine 40 mg PO DAILY 01/31/21 [History Last Taken Unknown] fexofenadine 180 mg PO DAILY 01/31/21 [History Last Taken Unknown] Allergy/AdvReac Type Severity Reaction Status Date / Time ibuprofen Allergy Angioedema Verified 01/31/21 09:50 oxycodone Allergy Other Verified 01/31/21 09:50 aspirin AdvReac Other Verified 01/31/21 09:50 Family History (Updated 01/31/21 @ 12:[address] Jerome Louis DO) Daughter Congenital heart anomaly Family History adopted Surgical History Previous back surgery Social History (Updated 01/31/21 @ 12:[address] Jerome Louis DO) Smoking Status: Never smoker alcohol intake: never substance use type: does not use ROS Constitutional Constitutional: Reports as per HPI Eyes Eyes: Reports as per HPI ENT HEENT: Reports as per HPI Cardiovascular Cardiovascular: Reports chest pain, dizziness, dyspnea and fatigue Respiratory/Chest Respiratory/Chest: Reports dyspnea Gastrointestinal Gastrointestinal: Reports as per HPI Genitourinary Genitourinary: Reports as per HPI Musculoskeletal Musculoskeletal: Reports as per HPI Integumentary Integumentary: Reports as per HPI Neurologic Neurologic: Reports as per HPI Psychiatric Psychiatric: Reports anxiety Physical Exam Const alert, oriented x3, no apparent distress and healthy appearing Orientation / Consciousness: awake HEENT normocephalic, head/scalp atraumatic and hearing grossly normal bilaterally Eyes PERRL, EOMs intact bilaterally, conjunctivae normal and no scleral icterus Neck full ROM, supple and no JVD Chest inspection of chest normal Resp clear to auscultation bilaterally Cardio regular rate, S1 normal heart sound and S2 normal heart sound GI normal to inspection, nondistended, normoactive bowel sounds Extremity no pedal edema Skin no rashes or lesions noted Neuro oriented x3, moves all extremities, no focal motor deficits and no sensory d eficits noted Psych Psych Narrative: Anxious appearing Risk Stratification Risk Stratification Applicable: Yes Age >/= 65: No >/= 3 CAD Risk Factors (HTN, HLD, DM, family hx of CAD, or current smoker): No Aspirin Use in the Past 7 Days: No Severe Angina (>/= episodes in 24 hours): No EKG ST Changes >/= 0.5mm: No Positive Cardiac Marker: Yes FABIANA Risk Stratification Score: 1 FABIANA % Risk: 5% Risk Objective Data Vital Signs: Vital Signs Temp Pulse Resp BP Pulse Ox 99.0 F 80 18 140/78 H 100 01/31/21 13:10 01/31/21 13:28 01/31/21 13:10 01/31/21 13:10 01/31/21 13:10 Oxygen Delivery Method Room Air Weight: 170 lb Body Mass Index (BMI) 29.2 Lab / Micro Data Result Diagrams: 01/31/21 10:40 01/31/21 10:40 Labs: Laboratory Results - last 24 hr 01/31/21 10:40: WBC 5.4, RBC 4.49 L, Hgb 14.4, Hct 42.6, MCV 94.9 H, MCH 32.1 H, MCHC 33.8, RDW Std Deviation 41.9, RDW Coeff of Cristine 12.0, Plt Count 177, MPV 11.0, Immature Gran % (Auto) 0.200, Neut % (Auto) 39.2 L, Lymph % (Auto) 47.6 H, [place] % (Auto) 7.7, Eos % (Auto) 4.6, Baso % (Auto) 0.7, Absolute Neuts (auto) 2.1, Absolute Lymphs (auto) 2.59, Nucleated RBC % 0 01/31/21 10:40: Sodium 140, Potassium 3.4 L, Chloride 107, Carbon Dioxide 28.0, Anion Gap 5, BUN 15, Creatinine 1.02, Estim Creat Clear Calc 70.13, Est GFR (MDRD) Af Amer 98, Est GFR (MDRD) Non-Af 81, BUN/Creatinine Ratio 14.7, Glucose 110 H, Calcium 9.0, Total Bilirubin 0.50, AST 61 H, ALT 58, Alkaline Phosphatase 76, Troponin I High Sens 158 H*, Total Protein 7.8, Albumin 3.8, Globulin 4.0, Albumin/Globulin Ratio 1.0 01/31/21 10:40: Total Creatine Kinase 314 H 01/31/21 13:25: Troponin I High Sens 154 H* Micro: Microbiology 01/31/21 10:40 Nasal Secretion SARS-CoV-2 Antigen (Rapid) - Final Cardiology Labs/Tests 01/31/21 10:40: WBC 5.4, RBC 4.49 L, Hgb 14.4, Hct 42.6, MCV 94.9 H, MCH 32.1 H, MCHC 33.8, Plt Count 177, MPV 11.0, Immature Gran % (Auto) 0.200, Neut % (Auto) 39.2 L, Lymph % (Auto) 47.6 H, [place] % (Auto) 7.7, Eos % (Auto) 4.6, Baso % (Auto) 0.7, Absolute Neuts (auto) 2.1, Nucleated RBC % 0 01/31/21 10:40: Sodium 140, Potassium 3.4 L, Chloride 107, Carbon Dioxide 28.0, Anion Gap 5, BUN 15, Creatinine 1.02, Est GFR (MDRD) Af Amer 98, Est GFR (MDRD) Non-Af 81, BUN/Creatinine Ratio 14.7, Glucose 110 H, Calcium 9.0, Total Bilirubin 0.50 Rhythm: Sinus rhythm EKG: Sinus rhythm ECHO: Pending Radiography Diagnostic Testing: Radiology Impression Chest X-Ray 01/31/21 10:40 IMPRESSION: Normal x-ray examination of the chest. Electronically Signed: Akash Bojorquez MD at 11:12 EST , Service support ,
--- NOTE | 2021-01-31 14:37 | CASEMGMT ---
According to the [facility] website, the following are in-network tertiary facilities: [facility], Jose, CC, Jose D, [facility], [facility], [place], [facility], and . Gladys KAMARA CM
--- NOTE | 2021-01-31 14:50 | CASEMGMT ---
ANH ALCALA assessment: Face to Face with patient for initial transition planning/care coordination assessment. ANH ALCALA introduced self and role at [facility], pt voices understanding and consents to assessment. Pt is sitting up in chair in no distress on room air. Pt is A/Ox4 and answers all questions appropriately. Pt has friend at bedside during assessment. Care providers, pharmacy, and demographics verified/updated. 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 LNOK: Lincoln Moser, father; Annette Real, friend Living Arrangements: Pt states lives with someone in apartment and states no concerns at home. Pt is independent with ADL's. Transportation: Pt states drives self and states no transportation concerns. DME/HHC: Pt states no current DME or need for any DME. Pt states no hx of HHC or SNF. Pt states no concerns with going home at time of discharge. Pt is unemployed. Pt states does not smoke cigarretes or drink ETOH. Pt voices no further concerns/needs. CM to follow for any further discharge planning/needs. Advised pt to ask for CM if any further questions/concerns/needs arise, voices understanding. Pt Goal: Home Plan[place] ANH ALCALA
[2021-01-31 16:57] LABS: Bacteria 0 SEEN /hpf (None Seen); Mucous, Urine 0 SEEN /hpf (<or=2+); Red Blood Cells-Urine 0 SEEN /hpf (0-5); Squamous Epithelial Cells - UA 0 SEEN /hpf (0-5); White Blood Cells 0 SEEN /hpf (0-5)
[2021-01-31 17:02] LABS: Troponin-I HS 144 pg/mL (3.0-78.0)
[2021-01-31 17:06] LABS: Color, Urine Yellow (Yellow); Glucose, Dipstick Normal (Normal); Ketone-Dipstick Negative (Negative); Leukocyte Esterase-Dipstick Negative /ul (Negative); Nitrite-Dipstick Negative (Negative); Occult Blood-Urine Negative /ul (Negative); Protein-Dipstick Negative (Negative); Specific Gravity, Urine 1.005 (1.002-1.030); Urine Bilirubin Dipstick Negative (Negative); Urine Clarity Clear (Clear); Urine Urobilinogen Normal (Normal)
[2021-01-31 17:11] LABS: Amphetamine Urine VISTA NEGATIVE (<1000 ng/mL); Barbiturate Urine VISTA NEGATIVE (< 200 ng/mL); Benzodiazepine Urine VISTA NEGATIVE (< 200 ng/mL); Cocaine Urine VISTA NEGATIVE (< 300 ng/mL); Ecstacy Urine VISTA NEGATIVE (< 500 ng/mL); Methadone Urine VISTA NEGATIVE (< 300 ng/mL); PCP Urine VISTA NEGATIVE (< 25 ng/mL); THC Urine VISTA NEGATIVE (< 50 ng/mL); Vista UDS pH Range 6
[2021-01-31] MEDS: LORazepam 1 MG Tablet PO (22:21)
[2021-02-01 03:00] VITALS: PULSE 55
[2021-02-01 04:25] VITALS: BP 120/69; PULSE 65; RESP 18; TEMP 36.7; O2SAT 100
--- NOTE | 2021-02-01 05:55 | EKG12_ITS ---
Test Reason : AM EKG Blood Pressure : / mmHG Vent. Rate : 062 BPM Atrial Rate : 062 BPM P-R Int : 178 ms QRS Dur : 078 ms QT Int : 448 ms P-R-T Axes : 062 036 035 degrees QTc Int : 454 ms Normal sinus rhythm Normal ECG When compared with ECG of 31-JAN-2021 14:24, MANUAL COMPARISON REQUIRED, DATA IS UNCONFIRMED Confirmed by HEIDI WATKINS, JAMES ([id number]), content editor MARICEL FERRER ([id number]) on 02/04/2021 8:40:40 AM Referred By: DR RIVAS Confirmed By:JAMES GORDON MD
[2021-02-01] MEDS: Clopidogrel Bisulfate 75 MG Tablet PO (06:53)
[2021-02-01 07:00] VITALS: PULSE 44
[2021-02-01 07:17] LABS: Anion Gap 8 (5-15); BUN 15 mg/dL (7-18); BUN/Creat Ratio 14.6 RATIO (10-20); Calcium,Total 8.9 mg/dL (8.5-10.1); Chloride 109 mmol/L (98-107); Cholesterol 183 mg/dL (200); Creatinine, Serum 1.03 mg/dL (0.70-1.30); EST Glomerular Filtration Rate 80 mL/min (>60); Est Glom Filt Rate - Afr Amer 97 mL/min (>60); Estimated Creatinine Clearance 69.45 ml/min; Glucose 103 mg/dL (74-106); High Density Lipoprotein 49 mg/dL; Magnesium 1.8 mg/dL (1.6-2.6); Potassium 4.1 mmol/L (3.5-5.1); Sodium Level 142 mmol/L (136-145); Triglycerides 75 mg/dL; Very Low Density Lipoprotein 15 mg/dL (5-40)
--- NOTE | 2021-02-01 09:09 | STRESSREP_ITS ---
Stress Test Report Date: 02-01-2021 Procedure: Exercise tolerance test/imaging study Indications: Chest pain; shortness of breath/dyspnea; abnormal cardiac enzymes Consent: Per the patient Procedure: The patient exercised on a Octavio protocol for 10 minutes and 35 seconds completing Stage III and 1 minute and 35 seconds of Stage IV achieving a peak heart rate of 160 bpm (95% predicted maximal heart rate) with a peak blood pressure 176/62 mmHg and a peak MET capacity of 13 METs. The baseline ECG demonstrated normal sinus rhythm. The peak exercise ECG d emonstrated no obvious ECG changes. There was an isolated PAC during exercise. The functional capacity was considered good. There was no complaint of chest discomfort during exercise or recovery. The examination was discontinued secondary to ankle discomfort Impression: 1. Technically adequate (percent predicted maximal heart rate greater than 85%) exercise tolerance test 2. Peak exercise ECG with no obvious ECG changes 3. There was an isolated PAC during exercise 4. Nuclear images pending Myocardial perfusion imaging study: Technique: The patient was injected with 12.0 mCi of technetium 99m Cardiolite and subsequently rest SPECT Cardiolite nuclear imaging was obtained in the horizontal long, vertical long, and short axis views. The patient exercised on a Octavio protocol for 10 minutes and 35 seconds completing Stage III and 1 minute and 35 seconds of Stage IV achieving a peak heart rate of 160 bpm (95% predicted maximal heart rate) with a peak blood pressure 176/62 mmHg and a peak MET capacity of 13 METs. The patient was injected with 36.0 mCi of technetium 99m Cardiolite and subsequently stress SPECT Cardiolite nuclear imaging was obtained in the horizontal long, vertical long, and short axis views. A gated Cardiolite study at peak stress was obtained. Interpretation: Rest and stress SPECT Cardiolite nuclear imaging status post realignment, normalization, and attenuation correction, demonstrates the appearance of relative uniform tracer uptake and myocardial perfusion appearing within normal limits. There were no myocardial perfusion deficits appreciated on the resting or stress polar map images. There is end systolic thickening and brightening. The gated Cardiolite study demonstrates myocardial thickening and inward wall motion. The reported LVEF is 80%. Impression: 1. Rest and stress SPECT Cardiolite nuclear imaging demonstrate relative uniform tracer uptake and myocardial perfusion appearing within normal limits. 2. The gated Cardiolite study reports an LVEF of 80%. This note was generated with [employer] software. It may contain incorrect words, spelling, and punctuation that were not noted in checking the note before signing.
[2021-02-01 09:30] VITALS: BP 110/78; PULSE 76; RESP 16; TEMP 36.6; O2SAT 100
--- NOTE | 2021-02-01 10:41 | PCM.DC ---
Documented by User: BLANQUITA Nye 02/01/21 12:49 Discharge Instructions Diet Discharge Diet: No restrictions Activity Discharge Activity: Return to Normal Activity Dressing / Incision Call your doctor if you observe: Shortness of breath, Chest pain and Increased palpitations (irregular heartbeat) Follow Up Care Test Results: Test results from this visit will be discussed in further detail at your follow-up appointment, if applicable. Discharge Plan Admission Admit Date/Time: 01/31/21 12:11 Primary Reason for Your Visit: Chest Pain Attending Provider: Vel Felix Primary Care Provider: Michael Andrade NP Consulting Providers: Khris Jensen Discharge Orders/Prescriptions Prescriptions: Continued famotidine 40 mg tablet 40 mg PO DAILY RF: 0 fexofenadine 180 mg tablet 180 mg PO DAILY RF: 0 Referrals / Follow Up: Michael Andrade NP, SAMUEL-C [Primary Care Provider] - Within 2 Weeks Disposition Disposition (needs filled in before D/C Order can be placed): Home, Self Care Documented by User: Dr. Vel Felix MD 02/01/21 13:15 Discharge Plan Admission Admit Date/Time: 01/31/21 12:11 Primary Reason for Your Visit: Chest Pain Attending Provider: Vel Felix Primary Care Provider: Michael Andrade NP Consulting Providers: Khris Jensen Discharge Orders/Prescriptions Prescriptions: Continued famotidine 40 mg tablet 40 mg PO DAILY RF: 0 fexofenadine 180 mg tablet 180 mg PO DAILY RF: 0 Referrals / Follow Up: Michael Andrade NP, NP-C [Primary Care Provider] - Within 2 Weeks Disposition Disposition (needs filled in before D/C Order can be placed): Home, Self Care
--- NOTE | 2021-02-01 10:46 | PCM.DC.SUM ---
Documented by User: BLANQUITA Nye 02/01/21 12:49 Providers Date of Admission: 01/31/21 Primary Care Physician: BLANQUITA Nelson Consultations 01/31/21 12:53 Consult: Cardiology Routine Consulting Provider: Khris Jensen Reason for Consult: NSTEMI EMERGENT Consult: No MD Notified: Yes Date Notified: 01/31/21 Time Notified: 12:16 Method of Notification: Verbal Reason For Visit: HEADACHE Diagnosis Discharge Diagnosis (1) Abnormal cardiac enzyme level: Status: Acute Code(s): R74.8 - Abnormal levels of other serum enzymes (2) HTN (hypertension): Status: Chronic Code(s): I10 - Essential (primary) hypertension (3) Anxiety: Status: Acute Code(s): F41.9 - Anxiety disorder, unspecified Medications at Discharge Home Medications famotidine 40 mg PO DAILY 01/31/21 fexofenadine 180 mg PO DAILY 01/31/21 Hospital Course Operations None Procedures 2-D Echocardiogram and Stress test Summary of Care Provided Minutes Spent on Discharge: 35 Hospital Course: Patient is a 55-year-old male who initially presented with chest pain. Patient underwent stress test which was negative as well as echocardiogram which demonstrates EF of 70%. Patient has a history of anxiety and has had cardiac work-up in the past which was negative. Patient will be discharged home on his home medications. Instructed to follow-up with his primary care provider upon discharge Physical Exam Const alert, oriented x3 and no apparent distress General Appearance: cooperative HEENT normocephalic and head/scalp atraumatic Eyes conjunctivae normal and no scleral icterus Neck supple General: trachea midline Resp normal respiratory effort, normal air movement and clear to auscultation bilaterally Cardio regular rate, regular rhythm, S1 normal heart sound, S2 normal heart sound and peripheral pulses 2+ throughout GI normal to inspection, nondistended, normoactive bowel sounds, soft to palpation and non-tender Extremity normal capillary refill and no clubbing, cyanosis or edema General Extremity: no tenderness to palpation of joints or extremities Skin skin turgor normal General Skin Exam: no breakdown Lesions: no lesions Rashes: no rashes Neuro oriented x3, moves all extremities, no focal motor deficits and no sensory deficits noted Motor Exam: Negative for general weakness Psych affect normal Appearance: appropriate Weight / BMI Weight Weight: 170 lb Body Mass Index (BMI) 29.2 ABG / Lab / Microbiology Data Result Diagrams: 01/31/21 10:40 02/01/21 06:20 Laboratory: Laboratory Results - last 24 hr 01/31/21 10:40: WBC 5.4, RBC 4.49 L, Hgb 14.4, Hct 42.6, MCV 94.9 H, MCH 32.1 H, MCHC 33.8, RDW Std Deviation 41.9, RDW Coeff of Cristine 12.0, Plt Count 177, MPV 11.0, Immature Gran % (Auto) 0.200, Neut % (Auto) 39.2 L, Lymph % (Auto) 47.6 H, Routt % (Auto) 7.7, Eos % (Auto) 4.6, Baso % (Auto) 0.7, Absolute Neuts (auto) 2.1, Absolute Lymphs (auto) 2.59, Nucleated RBC % 0 01/31/21 10:40: Sodium 140, Potassium 3.4 L, Chloride 107, Carbon Dioxide 28.0, Anion Gap 5, BUN 15, Creatinine 1.02, Estim Creat Clear Calc 70.13, Est GFR (MDRD) Af Amer 98, Est GFR (MDRD) Non-Af 81, BUN/Creatinine Ratio 14.7, Glucose 110 H, Calcium 9.0, Total Bilirubin 0.50, AST 61 H, ALT 58, Alkaline Phosphatase 76, Troponin I High Sens 158 H*, Total Protein 7.8, Albumin 3.8, Globulin 4.0, Albumin/Globulin Ratio 1.0 01/31/21 10:40: Total Creatine Kinase 314 H 01/31/21 13:25: Troponin I High Sens 154 H* 01/31/21 16:10: Troponin I High Sens 144 H* 01/31/21 16:50: Urine Opiates Screen NEGATIVE, Urine Methadone Screen NEGATIVE, Ur Barbiturates Screen NEGATIVE, Ur Phencyclidine Scrn NEGATIVE, Ur Amphetamines Screen NEGATIVE, U Methamphetamin-MDMA NEGATIVE, U Benzodiazepines Scrn NEGATIVE, Urine Cocaine Screen NEGATIVE, U Cannabinoids Screen NEGATIVE, Ur Drug Screen Comment 01/31/21 16:50: Urine Color Yellow, Urine Clarity Clear, Urine pH 7.0, Ur Specific [place] 1.005, Urine Protein Negative, Urine Glucose (UA) Normal, Urine Ketones Negative, Urine Occult Blood Negative, Urine Nitrite Negative, Urine Bilirubin Negative, Urine Urobilinogen Normal, Ur Leukocyte Esterase Negative, Urine RBC 0 SEEN, Urine WBC 0 SEEN, Ur Squamous Epith Cells 0 SEEN, Urine Bacteria 0 SEEN, Urine Mucus 0 SEEN 02/01/21 06:20: Sodium 142, Potassium 4.1, Chloride 109 H, Carbon Dioxide 25.0, Anion Gap 8, BUN 15, Creatinine 1.03, Estim Creat Clear Calc 69.45, Est GFR (MDRD) Af Amer 97, Est GFR (MDRD) Non-Af 80, BUN/Creatinine Ratio 14.6, Glucose 103, Calcium 8.9, Magnesium 1.8, Triglycerides 75, Cholesterol 183, LDL Cholesterol 119, VLDL Cholesterol 15, HDL Cholesterol 49 Microbiology: Microbiology 01/31/21 10:40 Nasal Secretion SARS-CoV-2 Antigen (Rapid) - Final Radiography Diagnostic Testing: Radiology Impression Chest X-Ray 01/31/21 10:40 IMPRESSION: Normal x-ray examination of the chest. Electronically Signed: Akash Bojorquez MD at 11:12 EST , Service support , Echocardiogram 01/31/21 12:53 Interpretation Summary Left ventricular systolic function is normal. The estimated ejection fraction is 70 %. Trivial mitral valve insufficiency. Trivial tricuspid valve insufficiency. Unable to estimate RV systolic pressure due to insufficient tricuspid regurgitant envelope. No evidence for diastolic dysfunction. Ordering Physician: Jerome Louis Referring Physician: Michael Andrade Performed By: Livia Siu, RDCS, RVT D/C Instructions Discharge Diet: No restrictions Call your doctor if you observe: Shortness of breath, Chest pain and Increased palpitations (irregular heartbeat) Meaningful Use Info Meaningful Use Diagnoses (Choose all that apply): None applicable Discharge Plan Admission Admit Date/Time: 01/31/21 12:11 Primary Reason for Your Visit: Chest Pain Attending Provider: Vel Felix Primary Care Provider: Michael Andrade NP Consulting Providers: Khris Jensen Discharge Orders/Prescriptions Prescriptions: Continued famotidine 40 mg tablet 40 mg PO DAILY RF: 0 fexofenadine 180 mg tablet 180 mg PO DAILY RF: 0 Referrals / Follow Up: Michael Andrade NP, PUSHER RUNNER-C [Primary Care Provider] - Within 2 Weeks Disposition Disposition (needs filled in before D/C Order can be placed): Home, Self Care Documented by User: Dr. Vel Felix MD 02/01/21 13:19 Providers Date of Admission: 01/31/21 Reason For Visit: HEADACHE Medications at Discharge Home Medications famotidine 40 mg PO DAILY 01/31/21 fexofenadine 180 mg PO DAILY 01/31/21 Hospital Course Summary of Care Provided Hospital Course: This 54-year-old man was admitted with palpitation, headache mostly from anxiety attack. His symptoms exacerbated after 2 to 3 miles of running heavy and did some weight workout. Patient was admitted to PCU. One isolated troponin was elevated 158. Patient had 2D echo which shows EF 70%. Furthermore patient had stress test which was negative for any stress-induced ischemia. Patient was seen by distribution systems superintendent. Overall discharge diagnosis was made, palpitations and anxiety. Discharge medication reconciliation done. Discharge follow-up instructions completed. Discharge process discussed with the patient and all questions were answered to patient's satisfaction. Total time spent, exact 35 minutes on discharge meds reconciliation, examination, coordination of care with nurses and ancillary staff, review of imaging and blood test and discussion with the patient on follow-up instructions Patient underwent stress test which was negative as well as echocardiogram which demonstrates EF of 70%. Patient has a history of anxiety and has had cardiac work-up in the past which was negative. Patient will be discharged home on his home medications. Instructed to follow-up with his primary care provider upon discharge Physical Exam Narrative Seen and examined. Patient has anxiety and sometimes gets palpitation. He also gets headache. classroom monitor sinus rhythm, heart rate in 60s. Physical exam General: Alert, Oriented x3, Cooperative HEENT: Atraumatic, PERRLA, EOMI, Normocephalic Oral: No Gingival or Mucosal Lesions/ Ulcerations Neck: Supple, No JVD, Negative Carotid Bruits Lungs: Air entry equal in bilateral lung bases. No crepitation/rhonchi Cardiovascular: Regular rate, Regular Rhythm, Normal S1, Normal S2, No murmurs Abdomen: Bowel Sounds Present, Soft, Non Tender, Non-Distended : No renal angle tenderness. No suprapubic tenderness. Extremities: No edema, Capillary Refill Less than 3 Seconds Skin: No rashes, No breakdown Musculoskeletal: No Tenderness to Palpation of Joints or Extremities Neurological: Cranial nerves II-XII grossly intact, DTR 2+/4 Psych/Mental Status: Normal Affect, Appropriate. ABG / Lab / Microbiology Data Result Diagrams: 01/31/21 10:40 02/01/21 06:20 Discharge Plan Admission Admit Date/Time: 01/31/21 12:11 Primary Reason for Your Visit: Chest Pain Attending Provider: Vel Felix Primary Care Provider: Michael Andrade NP Consulting Providers: Khris Jensen Discharge Orders/Prescriptions Prescriptions: Continued famotidine 40 mg tablet 40 mg PO DAILY RF: 0 fexofenadine 180 mg tablet 180 mg PO DAILY RF: 0 Referrals / Follow Up: Michael Andrade NP, PUSHER RUNNER-C [Primary Care Provider] - Within 2 Weeks Disposition Disposition (needs filled in before D/C Order can be placed): Home, Self Care Charges/Coding Visit Charges Inpatient E&M: 63958 Disch Hosp
[2021-02-01 11:00] VITALS: PULSE 64
--- NOTE | 2021-02-01 11:12 | PN.CARD_ITS ---
Subjective Subjective The patient is awake and alert. He denies any ongoing chest discomfort or difficulty breathing at rest or with ambulation or during his exercise tolerance test/imaging study. He states he feels good. Objective Data Vital Signs: Vital Signs Temp Pulse Resp BP Pulse Ox 97.8 F 64 16 110/78 100 02/01/21 09:30 02/01/21 11:00 02/01/21 09:30 02/01/21 09:30 02/01/21 09:30 Oxygen Delivery Method Room Air Weight: 170 lb Body Mass Index (BMI) 29.2 Intake & Output: Intake and Output for Last 24 Hours 01/30/21 01/31/21 02/01/21 23:59 23:59 23:59 Intake Total 1000 / 1000 Balance 1000 / 1000 Lab / Micro Data Result Diagrams: 01/31/21 10:40 02/01/21 06:20 Labs: Laboratory Results - last 24 hr 01/31/21 10:40: Total Creatine Kinase 314 H 01/31/21 13:25: Troponin I High Sens 154 H* 01/31/21 16:10: Troponin I High Sens 144 H* 01/31/21 16:50: Urine Opiates Screen NEGATIVE, Urine Methadone Screen NEGATIVE, Ur Barbiturates Screen NEGATIVE, Ur Phencyclidine Scrn NEGATIVE, Ur Amphetamines Screen NEGATIVE, U Methamphetamin-MDMA NEGATIVE, U Benzodiazepines Scrn NEGATIVE, Urine Cocaine Screen NEGATIVE, U Cannabinoids Screen NEGATIVE, Ur Drug Screen Comment 01/31/21 16:50: Urine Color Yellow, Urine Clarity Clear, Urine pH 7.0, Ur Specific [place] 1.005, Urine Protein Negative, Urine Glucose (UA) Normal, Urine Ketones Negative, Urine Occult Blood Negative, Urine Nitrite Negative, Urine Bilirubin Negative, Urine Urobilinogen Normal, Ur Leukocyte Esterase Negative, Urine RBC 0 SEEN, Urine WBC 0 SEEN, Ur Squamous Epith Cells 0 SEEN, Urine Bacteria 0 SEEN, Urine Mucus 0 SEEN 02/01/21 06:20: Sodium 142, Potassium 4.1, Chloride 109 H, Carbon Dioxide 25.0, Anion Gap 8, BUN 15, Creatinine 1.03, Estim Creat Clear Calc 69.45, Est GFR (M DRD) Af Amer 97, Est GFR (MDRD) Non-Af 80, BUN/Creatinine Ratio 14.6, Glucose 103, Calcium 8.9, Magnesium 1.8, Triglycerides 75, Cholesterol 183, LDL Cholesterol 119, VLDL Cholesterol 15, HDL Cholesterol 49 Micro: Microbiology 01/31/21 10:40 Nasal Secretion SARS-CoV-2 Antigen (Rapid) - Final Cardiology Labs/Tests 01/31/21 16:50: Urine Color Yellow, Urine Clarity Clear, Urine pH 7.0, Ur Specific [place] 1.005, Urine Protein Negative, Urine Glucose (UA) Normal, Urine Ketones Negative, Urine Occult Blood Negative, Urine Nitrite Negative, Urine Bilirubin Negative, Urine Urobilinogen Normal, Ur Leukocyte Esterase Negative, Urine RBC 0 SEEN, Urine WBC 0 SEEN 02/01/21 06:20: Sodium 142, Potassium 4.1, Chloride 109 H, Carbon Dioxide 25.0, Anion Gap 8, BUN 15, Creatinine 1.03, Est GFR (MDRD) Af Amer 97, Est GFR (MDRD) Non-Af 80, BUN/Creatinine Ratio 14.6, Glucose 103, Calcium 8.9, Magnesium 1.8, Triglycerides 75, Cholesterol 183, LDL Cholesterol 119, VLDL Cholesterol 15, HDL Cholesterol 49 Rhythm: Sinus rhythm EKG: Sinus rhythm; no acute ECG changes Echo: 03-05-2018: [facility]: Left ventricle reported was an LVEF of 60 to 65%; left atrium-mildly enlarged; trivial MR/TR ECHO: As noted below Stress Test: 2020 [facility]: Exercise tolerance test: Reported as negative Nuclear imaging study report: Unavailable for review at this time Stress Test Report Date: 02-01-2021 Procedure: Exercise tolerance test/imaging study Indications: Chest pain; shortness of breath/dyspnea; abnormal cardiac enzymes Consent: Per the patient Procedure: The patient exercised on a Octavio protocol for 10 minutes and 35 seconds completing Stage III and 1 minute and 35 seconds of Stage IV achieving a peak heart rate of 160 bpm (95% predicted maximal heart rate) with a peak blood pressure 176/62 mmHg and a peak MET capacity of 13 METs. The baseline ECG demonstrated normal sinus rhythm. The peak exercise ECG demonstrated no obvious ECG changes. There was an isolated PAC during exercise. The functional capacity was considered good. There was no complaint of chest discomfort during exercise or recovery. The examination was discontinued secondary to ankle discomfort Impression: 1. Technically adequate (percent predicted maximal heart rate greater than 85%) exercise tolerance test 2. Peak exercise ECG with no obvious ECG changes 3. There was an isolated PAC during exercise 4. Nuclear images pending Myocardial perfusion imaging study: Technique: The patient was injected with 12.0 mCi of technetium 99m Cardiolite and subsequently rest SPECT Cardiolite nuclear imaging was obtained in the horizontal long, vertical long, and short axis views. The patient exercised on a Octavio protocol for 10 minutes and 35 seconds completing Stage III and 1 minute a nd 35 seconds of Stage IV achieving a peak heart rate of 160 bpm (95% predicted maximal heart rate) with a peak blood pressure 176/62 mmHg and a peak MET capacity of 13 METs. The patient was injected with 36.0 mCi of technetium 99m Cardiolite and subsequently stress SPECT Cardiolite nuclear imaging was obtained in the horizontal long, vertical long, and short axis views. A gated Cardiolite study at peak stress was obtained. Interpretation: Rest and stress SPECT Cardiolite nuclear imaging status post realignment, normalization, and attenuation correction, demonstrates the appearance of relat kymberly uniform tracer uptake and myocardial perfusion appearing within normal limits. There were no myocardial perfusion deficits appreciated on the resting or stress polar map images. There is end systolic thickening and brightening. The gated Cardiolite study demonstrates myocardial thickening and inward wall motion. The reported LVEF is 80%. Impression: 1. Rest and stress SPECT Cardiolite nuclear imaging demonstrate relative uniform tracer uptake and myocardial perfusion appearing within normal limits. 2. The gated Cardiolite study reports an LVEF of 80%. Cardiac Cath: 04-03-2013: [place], [place] Left ventricle: Reported as normal LV systolic function Coronary arteries: Reported as normal Radiography Diagnostic Testing: Radiology Impression Chest X-Ray 01/31/21 10:40 IMPRESSION: Normal x-ray examination of the chest. Electronically Signed: Akash Bojorquez MD at 11:12 EST , Service support , Echocardiogram 01/31/21 12:53 Interpretation Summary Left ventricular systolic function is normal. The estimated ejection fraction is 70 %. Trivial mitral valve insufficiency. Trivial tricuspid valve insufficiency. Unable to estimate RV systolic pressure due to insufficient tricuspid regurgitant envelope. No evidence for diastolic dysfunction. ___ Ordering Physician: Jerome Louis Referring Physician: Michael Andrade Performed By: Livia Siu, JANEEN, RVT Physical Exam Const alert, oriented x3, no apparent distress and healthy appearing Orientation / Consciousness: awake HEENT normocephalic, head/scalp atraumatic and hearing grossly normal bilaterally Eyes PERRL, EOMs intact bilaterally, conjunctivae normal and no scleral icterus Neck full ROM, supple and no JVD Chest inspection of chest normal Resp clear to auscultation bilaterally Cardio regular rate, S1 normal heart sound and S2 normal heart sound GI normal to inspection, nondistended, normoactive bowel sounds Extremity no pedal edema Skin no rashes or lesions noted Neuro oriented x3, moves all extremities, no focal motor deficits and no sensory deficits noted Psych Psych Narrative: Anxious appearing Assessment & Plan Assessment/Plan (1) Abnormal cardiac enzyme level: PLAN: The patient has abnormal cardiac enzymes both CPK and troponin I levels. The etiology is unclear at this time, however, based upon his subsequent diagnostic studies/procedures it does not appear that he has had an acute coronary syndrome/UT. As there does not appear to be any other obvious acute etiologies for his enzymes such as thromboembolic disease, [employer] event, renal failure, infectious disease, etc., there is a concern as to whether or not his enzyme release is related to his significant physical activity/exercise program/weight lifting program. Based upon the results of his previous studies performed at outside hospitals and his studies performed at this institution it does not appear at the moment that he requires additional cardiovascular medical management/diagnostic studies/intervention. He should continue cardiovascular risk factor evaluation care as deemed appropriate. If there are any other concerns going forward from a cardiovascular standpoint involving concerns of underlying coronary arteries then he may need to be reasse ssed in the cardiac catheterization laboratory. The above was discussed with him as well as the [facility] staff. (2) HTN (hypertension): PLAN: His blood pressures have been intermittently elevated. It is unclear whether this is related to his anxiety versus an undiagnosed hypertensive state. His blood pressures can be followed and he can be treated as deemed appropriate. (3) Anxiety: PLAN: He does appear to be in general anxious. He states this is similar to his usual state with respect to how he feels and how he acts. He does not believe at this time there is any significant change. He will need to continue evaluation care per internal medicine as well as future outpatient evaluation care per his counselor, etc. Addt'l Comments As noted above, the patient's case was discussed and reviewed with the patient and the [facility] staff. He will follow-up with his primary care physician as well as his counselor that assist with his anxiety disorder. This note was generated using a voice recognition system and there may be incorrect words, spelling or punctuation that were not noted when reviewing the office note prior to saving. Procedure Criteria Type of Procedure Procedure Type: Elective Elective Risks - COVID COVID Risk Discussion: The surgeon/proceduralist and patient have discussed in detail the risk of exposure to and/or potential harm posed by the COVID-19 virus with having a surgery/procedure at this time versus the risk of delaying the moe barbara/procedure. It is not possible to know either the risk of delaying the surgery or procedure or chance of getting an infection with perfect accuracy, but a joint decision was made between the patient and the surgeon/proceduralist to proceed at this time with the scheduled surgery/procedure as indicated on the consent form.
[2021-02-01 12:52] VITALS: BP 124/69; PULSE 68; RESP 16; TEMP 36.7; O2SAT 98
== END 2021-02-01 14:00 | disposition home or self-care (01) | DRG 756 ==
LOC: ED 11:01 → PCU 13:26
PROVIDERS: Emergency Provider Student in an Organized Health Care Education/Training Program; PCP Nurse Practitioner Primary Care; Visit Provider Internal Medicine
DX: F41.0 Panic disorder [episodic paroxysmal anxiety] (principal); I10 Essential (primary) hypertension; R74.8 Abnormal levels of other serum enzymes; Z23 Encounter for immunization
CPT/HCPCS: 36415; 71045; 78452; 80048; 80053; 80061; 80307; 81001; 82550; 83735; 84484; 85025; 87426; 93005; 93017; 93306; 99285; A9500; 90686; A4216

== ENCOUNTER → 2021-08-08 | Outpatient (CLI) | payer MEDICAID, SELFPAY ==
--- NOTE | 2021-08-08 10:00 | RAD_ITS ---
INDICATION: ACID REFLUX EXAMINATION/TECHNIQUE: Barium oral contrast and gas bubbles were administered to the patient. Total Fluoroscopic Time: 13 seconds AND number of Fluoroscopic Images: 7 images COMPARISON: None. FINDINGS: No masses or strictures are identified. There is no hiatal hernia. The mucosal pattern is unremarkable. There is normal motility. Reflux was not elicited. RAD/Esophagus Dual Contrast IMPRESSION: Negative. Electronically Signed: Alex Rouse, at 10:37 EDT ,
== END | disposition home or self-care (01) ==
LOC: RAD 09:51
PROVIDERS: PCP Nurse Practitioner Primary Care; Referring Provider Otolaryngology; Visit Provider Otolaryngology
DX: K21.9 Gastro-esophageal reflux disease without esophagitis (principal)
CPT/HCPCS: 74221

== ENCOUNTER 2021-09-04 10:18 | Emergency (ER) | payer MEDICAID, SELFPAY ==
[2021-09-04 10:19] VITALS: BP 132/98; PULSE 92; RESP 18; TEMP 36.6; O2SAT 100; BMI 30.9
--- NOTE | 2021-09-04 10:36 | EKG12_ITS ---
Test Reason : COUGH Blood Pressure : / mmHG Vent. Rate : 067 BPM Atrial Rate : 067 BPM P-R Int : 166 ms QRS Dur : 074 ms QT Int : 408 ms P-R-T Axes : 056 025 039 degrees QTc Int : 431 ms Normal sinus rhythm Normal ECG Confirmed by FLAKITA WATKINS, XENIA ([id number]), editorial director TERRENCE PARKS ([id number]) on 09/05/2021 8:20:59 AM Referred By: BARBIE Confirmed By:XENIA BOGGS MD
--- NOTE | 2021-09-04 10:37 | EDS_ITS ---
HPI History of Present Illness Chief Complaint: Cough Narrative Narrative: 55-year-old male presenting with 2 to 3 months of nasal congestion, cough. He states he is really not short of breath. He states he has not really been exercising as much but when he goes out for a run he starts to get congestion and coughs and notes that he might have a faint wheeze. He was seen here 02/01/2021 for palpitations and end up having elevated troponins. He was admitted and had a normal stress test. He states that since that time he has had these intermittent symptoms but worse over the last 3 months. He states that he really does not feel short of breath and he feels like he can breathe. He is not have any fevers or chills. He is eating and drinking normal. He states that when he wakes up in the morning has some postnasal drip and takes a while to clear it and any has a mild nausea from swallowing his secretions. This goes away. He is able to exercise and does not have any sort of chest pain. He states that he is also seen ENT who told him that he had some mild GERD and allergies. He is on Deann. He has seen GI and had upper endoscopy and he states there was nothing found there. He seen pulmonology in [place] and states his work-up was okay. He states that he does not have the results yet this was a couple of weeks ago. Patient also states that since that time he was here in the hospital he had a cardiac catheterization which was negative [facility]. [facility] Medical History Abnormal cardiac enzyme level Anxiety Anxiety COVID-19 vaccination declined HTN (hypertension) Neck arthritis Home Medications famotidine 40 mg tablet 40 mg PO DAILY Check with primary doctor 01/31/21 [History Last Taken Unknown] fexofenadine 180 mg tablet 180 mg PO DAILY Check with primary doctor 01/31/21 [History Last Taken Unknown] prednisone 50 mg tablet 50 mg PO DAILY #5 tabs 09/04/21 [Rx Last Taken Unknown] Allergy/AdvReac Type Severity Reaction Status Date / Time ibuprofen Allergy Angioedema Verified 09/04/21 10:21 oxycodone Allergy Other Verified 09/04/21 10:21 aspirin AdvReac Other Verified 09/04/21 10:21 Family History Daughter Congenital heart anomaly Surgical History Previous back surgery Social History Smoking Status: Never smoker alcohol intake: never substance use type: does not use ROS ROS ED Constitutional Constitutional ED: Denies chills or fever(s) Eyes Eyes: Denies change in vision or diplopia ENT ENT ED: Reports rhinorrhea Cardiovascular Cardiovascular: Denies chest pain Respiratory/Chest Respiratory/Chest: Reports cough Gastrointestinal Gastrointestinal: Reports nausea; Denies abdominal pain Genitourinary Genitourinary ED: Denies dysuria or hematuria Musculoskeletal Musculoskeletal: Denies arthralgias or back pain Integumentary Denies abscess Neurologic Neurologic: Denies headache(s) or paresthesias Psychiatric Psychiatric: Reports anxiety; Denies depression EXAM Physical Exam Const Vital Signs: 09/04/21 10:19 09/04/21 10:54 09/04/21 11:28 Temperature 97.9 F Temperature Source Temporal Pulse Rate 92 70 Respiratory Rate 18 17 Respiratory Effort Normal Non-Labored Respiratory Depth Normal Respiratory Pattern Normal Normal Blood Pressure 132/98 H Blood Pressure Mean 109 Pulse Ox 100 Oxygen Delivery Method Room Air Room Air MDM MDM MDM Narrative Medical decision making narrative: Patient seen and evaluated for shortness of breath, rhinorrhea, cough. Seems to be worse when he is working out. [facility] and he has had multiple visits to [facility] for similar symptoms. He initially stated he had been seen by metal hanging helper but after talking with him it sounds like his primary care physician gave him some breathing treatments in office. He has not seen pulmonology. I did not find any pulmonology visits in his record. Patient states his primary care physician told him he does not have asthma. Patient states he is not having any chest pain and he does not feel short of breath necessarily he just feels like he has congestion and rhinorrhea. He does not feel like he is sick. He does not want tested for COVID. I did give him breathing treatments and prednisone and he feels better respiratory ash but a little bit anxious. Patient does have a history of anxiety and I did ip counsel him that sometimes breathing treatments and make a little bit jumpy. Chest x-ray my interpretation shows no acute cardiopulmonary process and the child neurologist does agree. I did obtain an EKG which shows normal sinus rhythm with a ventricular rate of 67 bpm without sign of ischemic change or dysrhythmia. I also reviewed his record of cardiac catheterization which was essentially normal. He had an ENT follow-up as well with no acute findings. I think his history sounds like exercise-induced asthma and I did ip counsel him on this. He has a butyryl at home. I will put him on a burst of steroids. I recommend the patient follow-up with primary care physician you need referral to pulmonology. Patient knowledge understanding. He stable for discharge. Impression: #1 exercise-induced Lab Data Attestation: I reviewed the patient's lab results. Radiography Diagnostic Testing: Clinical Impression(s) from Imaging Studies Chest X-Ray 09/04/21 10:37 IMPRESSION: Normal x-ray examination of the chest. Electronically Signed: Akash Bojorquez MD at 11:04 EDT , Discharge Plan Triage Chief Complaint: Cough ED Provider: Chuy Lancaster Dx/Rx/DC Orders Instructions: Exercise-Induced ... Prescriptions: New prednisone 50 mg tablet 50 mg PO DAILY Qty: 5 0RF No Action famotidine 40 mg tablet 40 mg PO DAILY fexofenadine 180 mg tablet 180 mg PO DAILY Primary Care Provider: Michael Andrade NP Referrals: Michael Andrade NP, PROJECT GEOLOGIST-C [Primary Care Provider] - Disposition Disposition: Home, Self Care
--- NOTE | 2021-09-04 10:37 | RAD_ITS ---
STUDY: X-RAY CHEST REASON FOR EXAM: Male, 55 years old. Cough and shortness of breath. TECHNIQUE: PA and lateral views of the chest. COMPARISON: Comparison is made with prior study dated 11/01/2020. FINDINGS: EKG electrodes are seen. The lungs are clear and expanded. There is no demonstrated pleural abnormality. Normal size heart. Normal mediastinum and ford. Normal visualized pulmonary arteries. Normal visualized aortic arch and descending thoracic aorta. Normal visualized thoracic spine. Normal visualized ribs, clavicles, and shoulders. There is no demonstrated abnormality of the visualized soft tissue structures of the upper abdomen. RAD/Chest PA and Lateral IMPRESSION: Normal x-ray examination of the chest. Electronically Signed: Akash Bojorquez MD at 11:04 EDT ,
[2021-09-04] MEDS: predniSONE 20 MG Tablet 60 MG PO (10:49)
[2021-09-04] MEDS: Albuterol 2.5 MG/3 ML VIAL.NEB. INHALATION (11:26)
[2021-09-04] MEDS: Ipratropium/Albuterol Sulfate 3 ML AMPUL.NEB INHALATION (11:26)
[2021-09-04 11:28] VITALS: PULSE 70; RESP 17
== END 2021-09-04 12:58 | disposition home or self-care (01) ==
PROVIDERS: Emergency Provider Student in an Organized Health Care Education/Training Program; PCP Nurse Practitioner Primary Care; Visit Provider Student in an Organized Health Care Education/Training Program
DX: R05.9 Cough, unspecified (principal); F41.9 Anxiety disorder, unspecified; I10 Essential (primary) hypertension; Z79.899 Other long term (current) drug therapy; Z28.310 Unvaccinated for COVID-19; K21.9 Gastro-esophageal reflux disease without esophagitis; R11.0 Nausea; R09.81 Nasal congestion
CPT/HCPCS: 71046; 93005; 94640; 99284

== ENCOUNTER 2021-10-14 09:04 | Emergency (ER) | payer MEDICAID, SELFPAY ==
[2021-10-14 09:07] VITALS: BP 136/87; PULSE 82; RESP 16; TEMP 36.8; O2SAT 98; BMI 30.9
[2021-10-14 09:15] VITALS: BP 136/87; PULSE 82; RESP 16; TEMP 36.8; O2SAT 98
--- NOTE | 2021-10-14 09:21 | RAD_ITS ---
STUDY: X-RAY CHEST REASON FOR EXAM: Male, 55 years old. Cough and wheezing. TECHNIQUE: PA and lateral views of the chest. COMPARISON: Comparison is made with prior study dated 09/04/2021. FINDINGS: Stable elevation of the right hemidiaphragm. There is no demonstrated pleural abnormality. Normal size heart. Normal mediastinum and ford. Normal visualized pulmonary arteries. Normal visualized aortic arch and descending thoracic aorta. Normal visualized thoracic spine. Normal visualized ribs, clavicles, and shoulders. There is no demonstrated abnormality of the visualized soft tissue structures of the upper abdomen. RAD/Chest PA and Lateral IMPRESSION: Normal x-ray examination of the chest. Electronically Signed: Akash Bojorquez MD at 9:51 EDT ,
--- NOTE | 2021-10-14 09:21 | RAD_ITS ---
STUDY: X-RAY - SOFT TISSUE NECK REASON FOR EXAM: Male, 55 years old. Cough. Wheezing. TECHNIQUE: 2 view(s) of the neck were obtained. COMPARISON: None. FINDINGS: Normal visualized nasopharynx, oropharynx, hypopharynx. Normal epiglottis. Normal visualized subglottic tracheal air column. Normal prevertebral soft tissue structures. There are degenerative changes of the cervical spine with cervical spondylosis. Loss of the normal cervical lordosis. The soft tissue structures are unremarkable. RAD/Neck for Soft Tissue IMPRESSION: No soft tissue abnormality. Degenerative changes of the cervical spine with loss of the normal cervical lordosis. Electronically Signed: Akash Bojorquez MD at 9:52 EDT ,
--- NOTE | 2021-10-14 09:26 | EX.ED.DYSGE1 ---
HPI History of Present Illness Chief Complaint: Cough Informant: patient Onset/Context/Timing Onset: Month(s) Current Severity: Mild Maximum Severity: Moderate Narrative Narrative: Patient presents for evaluation after a bad coughing fit this morning. For the past 3+ months he has been dealing with cough and congestion. Symptoms seem to be worse after working out. He denies fever or chills. He denies chest pain. He was diagnosed with COVID in January and states that was just like a bad case of bronchitis. Patient is currently on Xopenex, ipratropium, prednisone, Zithromax. A pertussis screen was sent off when he was seen at the [place] emergency room 2 days ago. He is scheduled to see pulmonary on the . [facility] Medical History Abnormal cardiac enzyme level Anxiety COVID-19 vaccination declined HTN (hypertension) Neck arthritis Home Medications azithromycin 500 mg tablet 500 mg PO DAILY 10/14/21 [History Last Taken Unknown] ipratropium bromide 17 mcg/actuation HFA aerosol inhaler (Atrovent HFA) 2 puff inhalation Q6H PRN sob 10/14/21 [History Last Taken Unknown] omeprazole 20 mg capsule,delayed release 20 mg PO DAILY 10/14/21 [History Last Taken Unknown] prednisone 50 mg tablet 30 mg PO BID 10/14/21 [History Last Taken Unknown] Allergy/AdvReac Type Severity Reaction Status Date / Time ibuprofen Allergy Angioedema Verified 10/14/21 09:23 oxycodone Allergy Other Verified 10/14/21 09:06 aspirin AdvReac Other Verified 10/14/21 09:06 Family History Daughter Congenital heart anomaly Surgical History Previous back surgery Social History Smoking Status: Never smoker alcohol intake: never substance use type: does not use ROS ROS ED Constitutional Constitutional ED: Denies chills or fever(s) Eyes Eyes: Denies change in vision or discharge from eye(s) ENT ENT ED: Reports other Details: Congestion ; Denies discharge from eye(s), rhinorrhea or sore throat Cardiovascular Cardiovascular: Denies chest pain or palpitations Respiratory/Chest Respiratory/Chest: Reports cough and other Details: Occasional wheezing ; Denies dyspnea Gastrointestinal Gastrointestinal: Denies abdominal pain, diarrhea, nausea or vomiting Genitourinary Genitourinary ED: Denies difficulty urinating or dysuria Musculoskeletal Musculoskeletal: Denies back pain or extremity pain Integumentary Denies Abrasions or rash Neurologic Neurologic: Denies headache(s) or weakness Psychiatric Psychiatric: Denies anxiety or depression Allergic/Immunologic Allergic/Immunologic ED: Denies lip swelling or urticaria EXAM Physical Exam Const Vital Signs: 10/14/21 09:07 10/14/21 09:15 10/14/21 09:21 Temperature 98.2 F 98.2 F Temperature Source Temporal Temporal Pulse Rate 82 82 Respiratory Rate 16 16 Respiratory Effort Normal Non-Labored Respiratory Depth Normal Respiratory Pattern Normal Blood Pressure 136/87 H 136/87 H Blood Pressure Mean 103 103 Pulse Ox 98 98 Oxygen Delivery Method Room Air Room Air Positive well nourished and well developed General Appearance ED: well developed HEENT Reports normocephalic and head/scalp atraumatic Eyes PERRL and EOMs intact bilaterally Neck supple Chest Wall inspection of chest normal and palpation of chest normal Resp normal respiratory effort and clear to auscultation bilaterally Cardio regular rate and regular rhythm GI normal to inspection, nondistended, normoactive bowel sounds Palpation: soft Back/Spine no CVA tenderness Extremity normal to inspection Neuro oriented x3 and no sensory deficits noted Sensorium / Orientation: alert Motor Exam: strength 5/5 throughout Psych mental status grossly normal Skin no rashes or lesions noted MDM MDM MDM Narrative Medical decision making narrative: Patient sent for two-view chest x-ray along with soft tissue neck x-ray. Radiography Diagnostic Testing: Clinical Impression(s) from Imaging Studies Chest X-Ray 10/14/21 09:21 IMPRESSION: Normal x-ray examination of the chest. Electronically Signed: Akash Bojorquez MD at 9:51 EDT , Soft Tissue Neck X-Ray 10/14/21 09:21 IMPRESSION: No soft tissue abnormality. Degenerative changes of the cervical spine with loss of the normal cervical lordosis. Electronically Signed: Akash Bojorquez MD at 9:52 EDT , Treatment and Re-Evaluation Narrative: Chest and neck x-ray per my interpretation reveal no obvious abnormalities. Radiology interpretation is reviewed and agrees. Patient states he has an appointment with his PCP this afternoon. He will discuss with her any further medication changes that may need to be made. I did encourage him to continue Mucinex on a regular basis and to follow-up with pulmonary on the as scheduled. Discharge Plan Triage Chief Complaint: Cough ED Provider: Jelena Irby Dx/Rx/DC Orders Clinical Impression: Head congestion, Cough Instructions: ED Cough Chronic Uncertain Cause Adult Prescriptions: No Action omeprazole 20 mg Capsule,Delayed Release(Dr/Ec) 20 mg PO DAILY azithromycin 500 mg Tablet 500 mg PO DAILY Atrovent HFA 17 mcg/actuation Hfa Aerosol Inhaler 2 puff INHALATION Q6H PRN (Reason: sob) prednisone 50 mg tablet 30 mg PO BID Primary Care Provider: Michael Andrade NP Referrals: Michael Andrade PACK TRAIN DRIVER, PACK TRAIN DRIVER-C [Primary Care Provider] - Keep [facility] appointment Disposition Disposition: Home, Self Care
== END 2021-10-14 10:26 | disposition home or self-care (01) ==
PROVIDERS: Emergency Provider Emergency Medicine; PCP Nurse Practitioner Primary Care; Visit Provider Emergency Medicine
DX: R05.9 Cough, unspecified (principal); I10 Essential (primary) hypertension; F41.9 Anxiety disorder, unspecified; Z79.899 Other long term (current) drug therapy; Z86.16 Personal history of COVID-19
CPT/HCPCS: 70360; 71046; 99282

== ENCOUNTER → 2021-10-22 | Outpatient (CLI) | payer MEDICAID, SELFPAY | END | disposition home or self-care (01) | LOC: LABSPEC 16:02 | PROVIDERS: PCP Nurse Practitioner Primary Care; Visit Provider Otolaryngology | DX: J02.9 Acute pharyngitis, unspecified (principal) | CPT/HCPCS: 87070 ==